=== PATIENT | female | born 1955 | race Caucasian/White ===

== ENCOUNTER 2016-10-08 10:47 | Day surgery (SDC) | payer MEDICARE, BC, OTHER ==
[~2016-10-08] VITALS: Ht 165.1 cm; Wt 99.8 kg
[2016-10-08] VITALS (7 sets, daily range): BP systolic 109–135; BP diastolic 65–76
[2016-10-08] MEDS ORDERED: MOBI15TA PO (10:58)
[2016-10-08] MEDS ORDERED: ASPI1TAB PO (10:58)
[2016-10-08] MEDS ORDERED: TRAM1CAP16 PO (10:58)
[2016-10-08] MEDS ORDERED: AMRI15CA10 PO (10:58)
[2016-10-08] MEDS ORDERED: AVAP75TA PO (10:58)
[2016-10-08] MEDS ORDERED: NORV5TAB PO (10:58)
[2016-10-08] MEDS ORDERED: TOPR100T PO (10:58)
[2016-10-08] MEDS ORDERED: NITR0.4D TD (10:58)
[2016-10-08] MEDS ORDERED: ONDANSETRON 4MG/2ML VIAL (J2405) IV ONE (11:45)
[2016-10-08] MEDS ORDERED: MORPHINE 4 MG/ML 1ML SYRINGE IV ONE (11:45)
--- NOTE | 2016-10-08 12:26 | REP ---
Clinical: Trauma. Technique: AP view of the pelvis with neutral and cross-table lateral views of the left hip. Findings: Anterior dislocation of the femoral prosthetic device in relation to the acetabulum. No obvious acute fracture. Impression: Anterior right hip dislocation. Signed by Richard Siegel MD 10/08/2016 12:18 P
[2016-10-08] MEDS ORDERED: NS 1,000 ML IV SCH ×2 (13:37→16:30)
[2016-10-08] MEDS ORDERED: PROPOFOL 200 MG/20 ML VIAL As Ordered ONE ×2 (13:39→15:35)
[2016-10-08] MEDS: PROPOFOL 200 MG/20 ML VIAL IV PRN ×7 (13:52→14:02)
--- NOTE | 2016-10-08 14:23 | REP ---
Clinical: Post reduction. Technique: Single AP view of the left hip. Findings: Continued dislocation noted. Impression: Left hip dislocation. Signed by Richard Siegel MD 10/08/2016 02:15 P
[2016-10-08] MEDS ORDERED: FENO160T10 PO (15:19)
[2016-10-08] MEDS ORDERED: ATOR40TA PO (15:19)
[2016-10-08] MEDS ORDERED: MIDAZOLAM INJ 2 MG/2 ML VIAL (J2250) As Ordered ONE (15:35)
[2016-10-08] MEDS ORDERED: ROCURONIUM BROMIDE 50 MG/5 ML VIAL As Ordered ONE (15:35)
[2016-10-08] MEDS ORDERED: fentaNYL 100 MCG/2 ML INJECTION (J3010) As Ordered ONE (15:35)
[2016-10-08] MEDS ORDERED: LIDOCAINE 2% INJ 100 MG/5 ML SDV (FOR ANES.) As Ordered ONE (15:35)
--- NOTE | 2016-10-08 16:11 | REP ---
Clinical: Closed reduction. Technique: Intraoperative fluoroscopic images. Findings: Two intraoperative fluoroscopic images demonstrate the patient to be status post reduction for prior dislocation. Total fluoroscopic time 2 seconds. Impression: Status post satisfactory reduction. Signed by Richard Siegel MD 10/08/2016 04:03 P
[2016-10-08] MEDS ORDERED: ONDANSETRON 4MG/2ML VIAL (J2405) IV PRN (16:30)
[2016-10-08] MEDS ORDERED: fentaNYL 100 MCG/2 ML INJECTION (J3010) IV PRN (16:30)
[2016-10-08] MEDS ORDERED: PERCOCET 5MG/325MG TAB PO PRN (16:30)
[2016-10-08] MEDS ORDERED: HYDROmorphone HCL 1 MG/ML SYRINGE (J1170) IV PRN (16:30)
--- NOTE | 2016-10-08 17:18 | HPE ---
DATE OF ADMISSION: 10/08/2016 CHIEF COMPLAINT: Left hip pain and deformity. HISTORY OF PRESENT ILLNESS: Patient slipped in the shower, did not fall, earlier today, and feels that she has dislocated her left hip. Presented promptly to the emergency room with inability to weight bear and deformity around the left hip joint. She has no other complaints. No neurological symptoms in the left lower extremity. She has a long history with her bilateral hips, status post total hip arthroplasty on the left with revision, and as well on the right with revision. Most recently on the left she did have a surgery, her most recent surgery was in 2013, followed by an anterior dislocation approximately 1 year ago with successful closed reduction. She recently had seen her orthopedic surgeon with xrays which were felt to be stable. PAST MEDICAL HISTORY: Significant for: 1. Stable angina. She did just see her clinical professor and has been using a nitroglycerin patch for that. She has no recent changes. Her recent examination with the clinical professor was in August and she was found to be stable. 2. Hypertension. 3. Chronic neck and back pain. CURRENT MEDICATIONS: - amlodipine - aspirin - cyclobenzaprine - irbesartan - meloxicam - metoprolol - nitroglycerin patch - tramadol PAST SURGICAL HISTORY: As above, bilateral total hips with revisions. SOCIAL HISTORY: She is a former smoker. REVIEW OF SYSTEMS: No fevers, chills, nausea, vomiting. No diarrhea. No constipation. No chest pain. No shortness of breath. She has been feeling well recently. ALLERGIES: None known. EXAMINATION: Awake, alert, and oriented times three. Well-appearing female in no acute distress. Appropriately dressed and well-nourished. Head: Normocephalic, atraumatic. Extraocular muscles are intact. Cardiovascular: Regular rate and rhythm. Pulmonary: No increased work of breathing. Abdomen: Soft, nontender, nondistended. Focused examination of the left lower extremity: There is low grade swelling and low grade deformity about the left hip anterior soft tissues consistent with anterior total hip dislocation. The skin is intact distally. She is fully neurovascularly intact with 2+ dorsalis pedis and posterior tibialis pulse. Less than 2 seconds capillary refill in all of her toes with sensation intact to light touch and intact extensor hallucis longus (EHL), flexor hallucis longus (FHL), tibialis anterior and tibialis posterior. Ipsilateral knee, leg, ankle, and thigh is grossly atraumatic. Xrays of the pelvis and left hip show bilateral total hip arthroplasties with an anterior and superior dislocation of the left femoral component. ASSESSMENT: Anterior-superior dislocation of left total hip arthroplasty. PLAN: After obtaining consent, using conscious sedation, under the direction of the emergency room (ER) physician, an attempt at closed reduction in the emergency department was performed which was unsuccessful due to muscular spasm and guarding. She was not fully sedated and was fighting significantly. As such, I discussed with the patient treatment options at this time. The plan at this time is to go forward with a closed reduction under general anesthesia, a very small possibility that I might go forward with some form of open reduction and we did discuss that and she signed the surgical consent in my presence. All of her questions were answered. She will have to wait until 3:30 p.m. this afternoon based on her nothing by mouth status. I did discuss her treatment with the nursing team in the operating room (OR) and they understand she will be held in the hospital overnight for approximately 24 hour observation afterwards. ODALIS
[2016-10-08 17:52] LABS: MEAN CORPUSCULAR HGB CONC 34.6 g/dl (32.0-36.5); MEAN CORPUSCULAR VOLUME 98.3 fl (80.0-96.0); RED CELL DISTRIBUTION WIDTH 12.5 % (11.5-14.5); WHITE BLOOD COUNT 11.9 K/mm3 (4.0-10.0)
[2016-10-08 18:25] LABS: ANION GAP 8 MEQ/L (8-16); BLOOD UREA NITROGEN 16 MG/DL (7-18); CALCIUM LEVEL 8.7 MG/DL (8.8-10.2); CARBON DIOXIDE LEVEL 25 MEQ/L (21-32); CHLORIDE LEVEL 106 MEQ/L (98-107); CREATININE FOR GFR 0.91 MG/DL (0.55-1.02); GLOMERULAR FILTRATION RATE > 60.0 (>45); GLUCOSE, FASTING 111 MG/DL (80-110); MAGNESIUM LEVEL 1.8 MG/DL (1.8-2.4); POTASSIUM SERUM 4.5 MEQ/L (3.5-5.1); SODIUM LEVEL 139 MEQ/L (136-145)
--- NOTE | 2016-10-08 20:17 | CR ---
DATE OF CONSULTATION: 10/08/2016 CONSULTATION REPORT FOR: Dick Donovan MD REASON FOR CONSULTATION: Management of blood pressure, medical management. HISTORY OF PRESENT ILLNESS: This is a 61-year-old female patient with underlying medical history of coronary artery disease, hypertension, and osteoarthritis, admitted under orthopedic service. Earlier today, patient was in the bathroom and subsequently slipped on her right foot and fell onto the floor with significant left hip pain. She was brought to the emergency room and found to have dislocation of left hip. Patient's baseline is ambulatory. Has history of bilateral hip replacement as well as knee arthroscopy, right shoulder orthopedic surgery. Was taken to the operating room (OR) by Dr. Donovan status post closed reduction of the left hip. Medicine consultation was requested. Patient denies any loss of consciousness, was able to get up on her own, hopping on her right leg. Denies any palpitations, chest pain, headache, lightheadedness. Denies any pain anywhere else. Denies any fevers or chills. ALLERGIES: No known drug allergies reported. PAST MEDICAL HISTORY: 1. Coronary artery disease. 2. Hypertension. 3. Osteoarthritis. 4. Obesity. PAST SURGICAL HISTORY: 1. Right shoulder orthopedic surgery. 2. Bilateral hip replacement. 3. Knee arthroscopy. 4. Gallbladder cholecystectomy. FAMILY HISTORY: No family history of coronary artery disease. SOCIAL HISTORY: Patient lives at home with . Baseline ambulatory. Drinks 1-2 beers a few times a month. Quit smoking 5 years ago, half a pack smoking history for 30 years. Denies any illicit drug use. REVIEW OF SYSTEMS: Reported 2/10 left hip pain. All other review of systems were negative. HOME MEDICATIONS: - Norvasc 5 mg by mouth daily - aspirin 81 mg by mouth daily - Lipitor 40 mg by mouth daily - Imitrex 50 mg by mouth daily - fenofibrate 160 mg by mouth daily - Avapro 75 mg by mouth daily - Mobic 15 mg by mouth daily - metoprolol XL 100 mg by mouth daily - nitroglycerin as needed - tramadol 200 mg by mouth daily PHYSICAL EXAMINATION: VITAL SIGNS: Temperature 96.6, pulse 64, respirations 16, blood pressure 130/71, pulse oximetry 99% on room air. GENERAL: Patient alert and oriented times three. Obese. In no acute distress. HEENT: Normocephalic, atraumatic. PULMONARY: Bilateral clear to auscultation. CARDIAC: Regular rate and rhythm, normal S1, S2. ABDOMEN: Soft, nontender. Positive bowel sounds. EXTREMITIES: Able to move bilateral lower extremities. Dorsalis pedis/posterior tibialis (DP/PT) pulses 2+ bilateral. LABORATORY DATA: Still pending. ASSESSMENT AND PLAN: This is a 61-year-old female patient with underlying medical history of coronary artery disease, hypertension, osteoarthritis, dyslipidemia, admitted under orthopedic service for left hip dislocation. 1. Left hip dislocation status post closed reduction. Pain regimen, physical therapy, activity status as per orthopedic team. As per Dr. Donovan, most likely will start physical therapy tomorrow. If patient is okay, can be discharged tomorrow. 2. Coronary artery disease. Restart aspirin tomorrow. Continue statin, Avapro, metoprolol, and Norvasc. Monitor blood pressure. 3. Hypertension. Continue the medication management above. 4. Dyslipidemia. Continue current medication. 5. Deep venous thrombosis (DVT) prophylaxis. Will start Lovenox subcutaneous tomorrow if patient is still here. DISPOSITION: Pending primary team. Patient will be under the care of Dr. Wells tomorrow from hospitalist service.
[2016-10-08] MEDS ORDERED: ENOXAPARIN 30 MG/0.3 ML SYR (J1650) SC SCH (21:00)
[2016-10-08] MEDS: SENOKOT S TAB PO SCH (21:50)
[2016-10-09 02:00] VITALS: BP 142/74
[2016-10-09 06:00] VITALS: BP 146/83
[2016-10-09 06:23] LABS: MEAN CORPUSCULAR HGB CONC 35.1 g/dl (32.0-36.5); MEAN CORPUSCULAR VOLUME 96.9 fl (80.0-96.0); RED CELL DISTRIBUTION WIDTH 12.5 % (11.5-14.5); WHITE BLOOD COUNT 11.2 K/mm3 (4.0-10.0)
[2016-10-09 06:34] LABS: ANION GAP 8 MEQ/L (8-16); BLOOD UREA NITROGEN 18 MG/DL (7-18); CALCIUM LEVEL 8.9 MG/DL (8.8-10.2); CARBON DIOXIDE LEVEL 24 MEQ/L (21-32); CHLORIDE LEVEL 107 MEQ/L (98-107); CREATININE FOR GFR 0.92 MG/DL (0.55-1.02); GLOMERULAR FILTRATION RATE > 60.0 (>45); GLUCOSE, FASTING 126 MG/DL (80-110); MAGNESIUM LEVEL 1.9 MG/DL (1.8-2.4); POTASSIUM SERUM 4.3 MEQ/L (3.5-5.1); SODIUM LEVEL 139 MEQ/L (136-145)
[2016-10-09 08:07] VITALS: BP 146/83
[2016-10-09] MEDS: SENOKOT S TAB PO SCH (08:07)
--- NOTE | 2016-10-09 08:37 | RO ---
DATE OF PROCEDURE: 10/08/2016 PREPROCEDURE DIAGNOSIS: Left anterior superior hip prosthesis dislocation. POSTPROCEDURE DIAGNOSIS: Left anterior superior hip prosthesis dislocation. PROCEDURE: Closed reduction of the left total hip prosthesis. SURGEON: Dr. Dick Donovan RN GASTROENTEROLOGY: ANESTHESIA: General. ESTIMATED BLOOD LOSS: 0. COMPLICATIONS: None. TECHNICAL PROCEDURE: The patient was identified in the preoperative holding area by name, medical record number, date of . Surgical site was marked in consultation with the patient and she was evaluated by anesthesia. When she was ready, she was brought back to the operative suite on a gurney and transferred to the OR table. At this point, general anesthesia was induced without complication. Prior to beginning the procedure, a final time out was performed and all in the room agreed. When the patient was appropriately paralyzed and stable, the hip reduced quite easily. I was able to reduce it using 10-20 pounds of in-line traction. I felt satisfactory clunk with reduction. At this point, the hip was taken through a range of motion in flexion, external rotation and internal rotation and was felt to be stable clinically. The rotation length and alignment of the leg was also felt to be satisfactory. The x-ray views at this time confirmed satisfactory closed reduction on AP and frogleg lateral. At this point, a hip abduction pillow was placed securing the limb. The patient was brought out of anesthesia without complication and transferred to the postanesthesia care unit in stable condition. Once she emerged from anesthesia, she remained and was documented to be fully neurovascularly intact in her left lower extremity.
[2016-10-09] MEDS ORDERED: MELOXICAM (MOBIC) 7.5 MG TAB PO SCH (09:00)
[2016-10-09] MEDS ORDERED: ATORVASTATIN 20 MG TAB PO SCH (09:00)
[2016-10-09] MEDS ORDERED: amLODIPine 5 MG TAB PO SCH (09:00)
[2016-10-09] MEDS ORDERED: METOPROLOL SUCC (TopROL XL) 100MG *XL* TAB PO SCH (09:00)
[2016-10-09] MEDS ORDERED: IRBESARTAN 75MG TABLET PO SCH (09:00)
[2016-10-09] MEDS ORDERED: ASPIRIN 81 MG ENTERIC TAB PO SCH (09:00)
--- NOTE | 2016-10-09 11:51 | REP ---
Clinical: Status post left hip dislocation and intraoperative reduction. Technique: AP and frog lateral views of the left hip. Findings: The patient is status post left hip replacement and normal appearance in positioning to the acetabular and femoral components is appreciated without current dislocation. No acute fracture noted. Surrounding soft tissues are unremarkable. Impression: Normal appearance to the left hip without continued dislocation or obvious fracture. Signed by Richard Siegel MD 10/09/2016 11:43 A
== END 2016-10-09 12:00 | disposition home or self-care (01) ==
LOC: EDBD 10:47 → M ED 11:58 → M SDC 14:25 → M MS5PR 16:35 → M SDC 10-09 12:00
DX: T84.021A Dislocation of internal left hip prosthesis, initial encounter (principal); W18.49XA Other slipping, tripping and stumbling without falling, initial encounter; Y93.E1 Activity, personal bathing and showering; Y92.002 Bathroom of unspecified non-institutional (private) residence as the place of occurrence of the external cause; Y99.8 Other external cause status; I20.9 Angina pectoris, unspecified; I10 Essential (primary) hypertension; M54.2 Cervicalgia; G89.29 Other chronic pain; Z79.899 Other long term (current) drug therapy; Z79.82 Long term (current) use of aspirin; Z96.643 Presence of artificial hip joint, bilateral; Z87.891 Personal history of nicotine dependence
CPT/HCPCS: 27266; 36415; 73501; 73502; 80048; 83735; 85027; 93041; 94760; 97161; 99285; G8978; G8979; G8980; J1650; J2250; J2405; J3010